=== PATIENT | female | born 1955 | race Caucasian/White ===

== ENCOUNTER 2016-11-04 20:53 | Emergency (ER) | payer BC, OTHER ==
[~2016-11-04] VITALS: Ht 162.6 cm; Wt 73.5 kg
[~2016-11-04 20:53] MED LIST: ESOM20CA PO
[2016-11-04 21:00] VITALS: Ht 162.6 cm; Wt 73.5 kg
[2016-11-04] MEDS ORDERED: IPRATROPIUM (NEB) 0.5 MG/2.5 ML AMP NEB STA (21:47)
[2016-11-04] MEDS ORDERED: ALBUTEROL 0.5% (NEB) 2.5 MG/0.5 ML AMP INH STA (21:47)
--- NOTE | 2016-11-04 21:52 | ERD ---
ER Documentation Chief Complaint Date/Time DATE: 11/04/16 TIME: 21:50 Chief Complaint Shortness of breath 5 days HPI 60-year-old female presents to emergency department for complaints of shortness of breath for 5 days. Patient states that she has difficulty breathing. Patient denies any pain at this time. Patient does feel some burning sensation in the upper back in the mid chest area times. Patient denies any chest pain at this time. Patient denies any palpitations or regular heartbeat. Patient has cough that started today also. Patient cannot hear herself wheezing. Patient denies any dyspnea on exertion, dyspnea on lying down. Patient denies any dizziness. ROS All systems reviewed and are negative except as per history of present illness. Medications Home Meds Reported Medications Esomeprazole Mag Trihydrate (Nexium) 20 Mg Capsule.dr, 20 MG PO BID, CAP 06/21/14 Allergies Allergies: Coded Allergies: No Known Allergy (Unverified , 05/07/14) PMhx/Soc Medical and Surgical Hx: pt denies Medical Hx, pt denies Surgical Hx History of Surgery: No Anesthesia Reaction: No Hx Neurological Disorder: No Hx Respiratory Disorders: No Hx Cardiac Disorders: No Hx Psychiatric Problems: No Hx Miscellaneous Medical Probl: No Hx Alcohol Use: Yes Hx Substance Use: No Hx Tobacco Use: No FmHx Family History: No coronary disease, No diabetes, No other Physical Exam Vitals Vital Signs Date Time Temp Pulse Resp B/P Pulse Ox O2 Delivery O2 Flow Rate FiO2 11/04/16 22:38 92 18 98 21 11/04/16 21:00 98.4 98 20 127/84 100 Physical Exam GENERAL: The patient is well developed and appropriate for usual state of health, in no apparent distress. CHEST: Noted bilateral diffuse wheezing on the right lung with diminished breath sounds in both lung. There are no rales, or rhonchi. HEART: Regular rate and rhythm. No murmurs, clicks, rubs or gallops. No S3 or S4. ABDOMEN: Soft, nontender and nondistended. Good bowel sounds. No rebound or guarding. No gross peritonitis. No gross organomegaly or masses. No Viramontes sign or McBurney point tenderness. BACK: No midline or flank tenderness. EXTREMITIES: Equal pulses bilaterally. There is no peripheral clubbing, cyanosis or edema. No focal swelling or erythema. Full range of motion. Grossly neurovascularly intact. NEURO: Alert and oriented. Cranial nerves 2-12 intact. Motor strength in all 4 extremities with 5/5 strength. Sensation grossly intact. Normal speech and gait. SKIN: There is no apparent rash or petechia. The skin is warm and dry. HEMATOLOGIC AND LYMPHATIC: There is no evidence of excessive bruising or lymphedema. No gross cervical, axillary, or inguinal lymphadenopathy. Result Diagram: 11/04/165 11/04/165 Results 24 hrs Laboratory Tests Test 11/04/16 22:15 White Blood Count 5.910^3/ul Red Blood Count 4.2910^6/ul Hemoglobin 13.1g/dl Hematocrit 39.5% Mean Corpuscular Volume 92.1fl Mean Corpuscular Hemoglobin 30.5pg Mean Corpuscular Hemoglobin Concent 33.2g/dl Red Cell Distribution Width 12.7% Platelet Count 67070^3/UL Mean Platelet Volume 9.1fl Neutrophils % 57.5% Lymphocytes % 32.5% Monocytes % 9.1% Eosinophils % 0.5% Basophils % 0.2% Nucleated Red Blood Cells % 0.0/100WBC Neutrophils # 3.410^3/ul Lymphocytes # 1.910^3/ul Monocytes # 0.510^3/ul Eosinophils # 0.010^3/ul Basophils # 0.010^3/ul Nucleated Red Blood Cells # 0.010^3/ul Sodium Level 137mmol/L Potassium Level 3.7mmol/L Chloride Level 104mmol/L Carbon Dioxide Level 27mmol/L Anion Gap 10 Blood Urea Nitrogen 13mg/dl Creatinine 0.68mg/dl Glucose Level 113mg/dl Calcium Level 9.7mg/dl Total Bilirubin 0.1mg/dl Direct Bilirubin 0.00mg/dl Indirect Bilirubin 0.1mg/dl Aspartate Amino Transf (AST/SGOT) 26IU/L Alanine Aminotransferase (ALT/SGPT) 30IU/L Alkaline Phosphatase 99IU/L Troponin I < 0.012ng/ml B-Type Natriuretic Peptide 56PG/ML Total Protein 8.2g/dl Albumin 4.5g/dl Globulin 3.70g/dl Albumin/Globulin Ratio 1.21 Current Medications Medications (Trade) Dose Ordered Sig/Neeta Route PRN Reason Start Time Stop Time Status Last Admin Dose Admin Ipratropium [place]off[place] (Atrovent 0.02% (Neb)) 0.5 mg ONCE STAT NEB 11/04/16 21:47 11/04/16 21:49 DC 11/04/16 22:07 Albuterol (Proventil 0.5% (Neb)) 10 mg ONCE STAT INH 11/04/16 21:47 11/04/16 21:49 DC 11/04/16 22:07 Breathing treatment of albuterol and Atrovent was given here in emergency department, after treatment, patient's lungs sounds are clear and patient's oxygenation is better. Patient verbalized feeling much better. EKG was done, read by me and is sinus rhythm with occasional PVC, low voltage QRS, left anterior fascicular block, normal axis, there is no ST changes or changes in the EKG that indicates any cardiac emergencies at this time. Patient' s EKG was also reviewed by Dr. Simon. Impression: no acute findings on EKG PROCEDURE: XR Chest. CLINICAL INDICATION: Chest pain. TECHNIQUE: Single frontal view of the chest was obtained. COMPARISON: Chest x-ray 06/21/2014. FINDINGS: The soft tissues are normal. The bony elements are normal. The heart, cardiomediastinal silhouette and hilar structures are normal. The pulmonary vasculature is normal. There is a left-sided aorta. The lungs are clear. The costophrenic angles are normal. IMPRESSION: 1. Stable chest x-ray with no evidence of active cardiopulmonary disease. RPTAT:AAJJ Physician Amarilys Date Time Electronically viewed and signed by Physician Amarilys on 11/04/2016 22:42 CASSANDRA/ CC: BENITA SANCHEZ MUSIC SUPERVISOR Procedures/MDM Medical Decision Making: Patient symptoms are most likely consistent with acute bronchitis, which viral in origin. There is low suspicion for Pneumonia at this time since patients lungs sounds are clear, patient O2 saturation is normal and patient doesnt show any respiratory distress. Patients chest xray doesnt show infiltrates or any other cardiopulmonary emergencies at this time. There is low suspicion for other cardiopulmonary emergencies at this time such as CHF, Pulmonary Embolism, Pneumothorax, Aortic Aneurysm or any other cardiopulmonary emergencies at this time. There is low suspicion for sepsis. Patient appears well and is hemodynamically stable. Fever is controlled with medicines. Cardiac markers are negative, EKG does not show any cardiopulmonary emergencies at this time aside from occasional PVCs, no symptoms of congestive heart failure. Disposition: Home. Condition: Stable Prescriptions: Albuterol, guaifenesin DM, Zyrtec Instructions: Patient is advised to take medications as prescribed. Patient is advised to rest. Patient advised to increase fluid intake, do humidifier at home and if possible, do salt water gargles. Patient is advised that if symptoms are worse, shortness of breath, uncontrolled fever, stridor, vomiting, worst signs and symptoms to return to emergency department immediately. Otherwise, patient is advised to follow up with primary doctor in 5-7 days. Departure Diagnosis: Primary Impression: Acute bronchitis Bronchitis organism: unspecified organism Qualified Code: J20.9 - Acute bronchitis, unspecified organism Condition: Stable Patient Instructions: Bronchitis With Wheezing (Adult) Additional Instructions: Patient is advised to take medications as prescribed. Patient is advised to rest. Patient advised to increase fluid intake, do humidifier at home and if possible, do salt water gargles. Patient is advised that if symptoms are worse, shortness of breath, uncontrolled fever, stridor, vomiting, worst signs and symptoms to return to emergency department immediately. Otherwise, patient is advised to follow up with primary doctor in 5-7 days. BENITA SANCHEZ NP November 04, 2016 21:52
[2016-11-04 22:32] LABS: ADD SCAN DIFF NO
[2016-11-04 22:35] LABS: BASOPHILS % 0.2 % (0.0-2.0); EOSINOPHILS % 0.5 % (0.0-7.0); HEMATOCRIT 39.5 % (37.0-47.0); HEMOGLOBIN 13.1 g/dl (12.0-16.0); LYMPHOCYTES # 1.9 10^3/ul (0.8-2.9); LYMPHOCYTES % 32.5 % (15.0-51.0); MEAN CORPUSCULAR HEMOGLOBIN 30.5 pg (29.0-33.0); MEAN CORPUSCULAR HGB CONC 33.2 g/dl (32.0-37.0); MEAN CORPUSCULAR VOLUME 92.1 fl (82.0-101.0); MEAN PLATELET VOLUME 9.1 fl (7.4-10.4); MONOCYTE # 0.5 10^3/ul (0.3-0.9); MONOCYTES % 9.1 % (0.0-11.0); NEUTROPHIL # 3.4 10^3/ul (1.6-7.5); NEUTROPHILS % 57.5 % (39.0-77.0); PLATELET COUNT 209 10^3/UL (140-415); RED BLOOD COUNT 4.29 10^6/ul (4.20-5.40); RED CELL DISTRIBUTION WIDTH 12.7 % (11.5-14.5); WHITE BLOOD COUNT 5.9 10^3/ul (4.8-10.8)
--- NOTE | 2016-11-04 22:43 | RADRPT ---
PROCEDURE: XR Chest. CLINICAL INDICATION: Chest pain. TECHNIQUE: Single frontal view of the chest was obtained. COMPARISON: Chest x-ray 06/21/2014. FINDINGS: The soft tissues are normal. The bony elements are normal. The heart, cardiomediastinal silhouette and hilar structures are normal. The pulmonary vasculature is normal. There is a left-sided aorta. The lungs are clear. The costophrenic angles are normal. IMPRESSION: 1. Stable chest x-ray with no evidence of active cardiopulmonary disease. RPTAT:AAJJ Physician Amarilys Date Time Electronically viewed and signed by Physician Amarilys on 11/04/2016 22:42 CASSANDRA/
[2016-11-04 23:01] LABS: ALANINE AMINOTRANSFERASE 30 IU/L (13-69); ALBUMIN 4.5 g/dl (3.3-4.9); ALBUMIN/GLOBULIN RATIO 1.21; ALKALINE PHOSPHATASE 99 IU/L (42-121); ANION GAP 10 (8-16); ASPARTATE AMINO TRANSFERASE 26 IU/L (15-46); BILIRUBIN,INDIRECT 0.1 mg/dl (0-1.1); BILIRUBIN,TOTAL 0.1 mg/dl (0.2-1.3); BLOOD UREA NITROGEN 13 mg/dl (7-20); CALCIUM 9.7 mg/dl (8.4-10.2); CARBON DIOXIDE 27 mmol/L (21-31); CHLORIDE 104 mmol/L (97-110); CREATININE 0.68 mg/dl (0.44-1.00); GLUCOSE 113 mg/dl (70-220); POTASSIUM 3.7 mmol/L (3.5-5.1); SODIUM 137 mmol/L (135-144); TOTAL PROTEIN 8.2 g/dl (6.1-8.1)
[2016-11-04 23:13] LABS: B-TYPE NATRIURETIC PEPTIDE 56 PG/ML (0-125); TROPONIN-I < 0.012 ng/ml (0.00-0.12)
[2016-11-04] MEDS ORDERED: ALBU8.5H3 INH (23:23)
[2016-11-04] MEDS ORDERED: GUAI120S26 PO (23:23)
[2016-11-04] MEDS ORDERED: CETI10CA PO (23:23)
[2016-11-04 23:39] VITALS: BP 125/84; PULSE 110; RESP 20; TEMP 98.4
== END 2016-11-04 23:23 | disposition home or self-care (01) ==
LOC: FTE 20:53
DX: J20.9 Acute bronchitis, unspecified (principal)
CPT/HCPCS: 36415; 71010; 80053; 83880; 84484; 85025; 93005; 94644